=== PATIENT | male | born 1960 | race Caucasian/White ===

== ENCOUNTER 2021-06-29 14:22 | Outpatient (CLI) | payer BC ==
[~2021-06-29 14:22] MED LIST: Iopamidol-370 76% 500 ML 1 ML ONE
== END 2021-06-29 14:23 | disposition home or self-care (01) ==
LOC: BICCT 14:22
PROVIDERS: ATTEND Specialist
DX: N42.9 Disorder of prostate, unspecified (principal)
CPT/HCPCS: 74177; 82565; Q9967

== ENCOUNTER 2021-07-14 10:32 | Outpatient (CLI) | payer BC | END 2021-07-14 10:33 | disposition home or self-care (01) | LOC: LABBT 10:32 | PROVIDERS: ATTEND Dentist General Practice | DX: Z01.818 Encounter for other preprocedural examination (principal); N40.0 Benign prostatic hyperplasia without lower urinary tract symptoms | CPT/HCPCS: 93005; 93010 ==